=== PATIENT | male | born 2000 ===

== ENCOUNTER 2025-06-26 02:17 | Emergency (ER) | payer OTHER ==
[~2025-06-26] VITALS: Ht 170.2 cm; Wt 104.3 kg
[2025-06-26 02:26] VITALS: BP 151/96
[2025-06-26] MEDS ORDERED: BENADRYL25 M1 PO (02:35)
== END 2025-06-26 03:04 | disposition home or self-care (01) ==
LOC: ER 02:17
DX: L23.9 Allergic contact dermatitis, unspecified cause (principal)
CPT/HCPCS: 99282; A9270